=== PATIENT | female | born 1970 | race Two or more races ===

== ENCOUNTER 2016-11-13 08:02 | Inpatient (IN) | payer OTHER ==
[2016-11-13] MEDS ORDERED: ceFAZolin 1 GM/5 ML SYR ONE (13:34)
[2016-11-13] MEDS ORDERED: HEPARIN 1000 UNIT/1 ML MDV ONE (13:34)
[2016-11-13] MEDS ORDERED: BUPIVACAINE 0.5% 30 ML SDV ONE (13:34)
[2016-11-13] MEDS ORDERED: LIDOCAINE 1% 5 ML SDV ID PRN (14:59)
[2016-11-13] MEDS ORDERED: LR 1,000 ML IV ONE (14:59)
[2016-11-13] MEDS ORDERED: SUGAMMADEX SODIUM 200 MG/2 ML VIAL IVP ONE (15:23)
[2016-11-13] MEDS ORDERED: DEXAMETHASONE 4 MG/ML VIAL ONE (15:23)
[2016-11-13] MEDS ORDERED: ONDANSETRON 4 MG/2 ML VIAL ONE ×2 (15:23→18:33)
[2016-11-13] MEDS ORDERED: LIDOCAINE 2% 100 MG/5 ML SYR ONE (15:23)
[2016-11-13] MEDS ORDERED: ROCURONIUM 50 MG/5 ML VIAL ONE (15:23)
[2016-11-13] MEDS ORDERED: fentaNYL 250 MCG/5 ML INJ ONE (15:26)
[2016-11-13] MEDS ORDERED: PROPOFOL 200 MG/20 ML VIAL ONE (15:26)
[2016-11-13] MEDS ORDERED: cefOXitin SODIUM 1 GM in D5W 50 ML IV ONE (15:30)
[2016-11-13] MEDS ORDERED: MIDAZOLAM 2 MG/2 ML VIAL ONE (16:31)
[2016-11-13] MEDS ORDERED: fentaNYL 100 MCG/2 ML INJ ONE ×2 (17:47→18:01)
[2016-11-13] MEDS ORDERED: KETOROLAC 30 MG/1 ML SDV ONE (18:01)
[2016-11-13] MEDS ORDERED: LORazepam 2 MG/ML INJ ONE (18:46)
--- NOTE | 2016-11-13 18:56 | CPEKG ---
Heart Rate: 50 RR Interval: 1200 P-R Interval: 164 QRSD Interval: 90 QT Interval: 488 QTC Interval: 445 P Monroe: 8 QRS Monroe: 220 T Wave Monroe: 137 EKG Severity - ABNORMAL ECG - EKG Impression: SINUS RHYTHM EKG Impression: ANTEROLATERAL INFARCT, AGE INDETERMINATE Electronically Signed By: Carlos Byrd 15-Nov-2016 08:01:22
[2016-11-13] MEDS ORDERED: HYDROmorphONE/DILAUDID 1 MG/ML SYR ONE (20:27)
[2016-11-13] MEDS ORDERED: HYDROmorphONE/DILAUDID 1 MG/ML SYR IVP ONE (20:30)
[2016-11-13] MEDS ORDERED: HYDROmorphONE/DILAUDID 1 MG/ML SYR IVP PRN (21:00)
[2016-11-13] MEDS ORDERED: NALOXONE HCL 0.4 MG/ML INJ IVP PRN (21:01)
[2016-11-13] MEDS ORDERED: NS 1,000 ML IV SCH (21:15)
--- NOTE | 2016-11-13 21:56 | GHP ---
[f rep st] HISTORY AND PHYSICAL DATE OF ADMISSION: 11/13/2016 HISTORY OF PRESENT ILLNESS: The patient is a 46-year-old female with history of coronary artery dis ease, remote CABG, who is postop day 0 following an elective laparoscopic cholecystectomy with Dr. Bianca Palmer. In the PACU, she was found to have a fair amount of upper abdominal pain in her right upper side. I speak to the patient largely through her family as she is Slovak-speaking only. Sh e states this is unlike her previous cardiac pain. She is not short of breath. She is not diaphore tic. She felt well coming into the hospital this morning. She has no history of VTE. Her CABG was in 2005. She has also had subsequent stents prior. REVIEW OF SYSTEMS: Complete 10-point review of systems conducted and negative except as noted in th e HPI. PAST MEDICAL HISTORY: 1. Coronary artery disease with CABG and stents prior to that. 2. Hypertension. 3. Mild obesity. 4. Hyperlipidemia. 5. GERD. ALLERGIES: There are no known drug allergies. HOME MEDICATIONS: Aspirin, nitroglycerin, spironolactone, atorvastatin, carvedilol, lisinopril, ome prazole. SOCIAL HISTORY: She lives in [place] with family. Nonsmoker. Nondrinker. FAMILY HISTORY: She is the only family member with early coronary disease. PHYSICAL EXAMINATION: VITAL SIGNS: Afebrile, blood pressure 165/89, pulse 92, breathing 20 times a minute, 100% on 4 L. GENERAL: Uncomfortable, writhing in pain in bed. HEENT: Sclerae anicteric. Oropharynx is clear. Mucous membranes are moist. NECK: Supple without lymphadenopathy or JVD. LUNGS: Clear to auscultation bilaterally. HEART: S1, S2. Not tachycardic. ABDOMEN: Soft. Hector l sounds are present but hypoactive. There is no rebound or guarding. There is a Hernandez sign. She is clutching her right upper quadrant. EXTREMITIES: Lower extremities without edema. Calves are nontender. SKIN: Without rash. NEUROLOGIC: Nonfocal. LABORATORY DATA: Troponin is pending. EKG, interpreted by la, shows sinus at 50 with left axis dev iation. There is T-wave inversion in I, L, V6 with no prior for comparison. There is no ST elevati on. IMAGING DATA: Chest x-ray, interpreted by me, shows no acute cardiopulmonary disease. There is bernardo dence of prior CABG. There is no free air under the diaphragm. I discussed the case Dr. Arthur Palmer. ASSESSMENT AND PLAN: A 46-year-old female with postoperative pain with concerning for ischemic pain . 1. Coronary artery disease. Patient has an abnormal EKG with no prior; however, she states it is u nlike her prior pain and certainly her symptoms are readily and probably appropriately attributed to laparoscopic cholecystectomy. Cycle troponins. Follow her on telemetry. Her trim and burr operator is Dr. Israel Noriega. I have not spoken with him tonight, but they can compare her EKG to a prior. Again , troponins are pending. 2. Postoperative pain, fairly significant, greater than one might expect from a laparoscopic cholec ystectomy. Will put her on a Dilaudid SALES AND MARKETING EXECUTIVE, scheduled Tylenol, and p.r.n. antiemetics. 3. Hyperlipidemia. Will continue her statin tomorrow. 4. Prophylaxis. She is moderate to high risk, but she recently had surgery. Will start her on SCD s for now. She may be leaving the hospital. Certainly, if she remains in the hospital for prolonge d period of time, then pharmacologic prophylaxis would be indicated, probably starting by the 48-tenzin r parvin. 5. Disposition. Observation status. /[id number]/MODL
[2016-11-13] MEDS: ACETAMINOPHEN 500 MG TAB PO SCH (22:25)
[2016-11-13] MEDS: HYDROmorphONE/DILAUDID 6 MG/30 ML PCA IV PRN (22:25)
[2016-11-13] MEDS: ONDANSETRON 4 MG/2 ML VIAL IVP PRN (22:33)
[2016-11-14 01:04] LABS: % IMMATURE GRANULYOCYTES 0.6 % (0.0-1.1); ABSOLUTE IMMATURE GRANULOCYTES 0.05 10^3/uL (0.00-0.10); ADD DIFF? NO; ADD MORPH? NO; ADD SCAN? NO; ATYPICAL LYMPHOCYTE FLAG 0 (0-99); FRAGMENT RBC FLAG 0 (0-99); HEMATOCRIT 36.1 % (38.0-47.0); HEMOGLOBIN 11.7 g/dL (12.6-16.3); LEFT SHIFT FLG 10 (0-99); LIPEMIA HEMOLYSIS FLAG 80 (0-99); MEAN CELL HEMOGLOBIN 25.9 pg (27.9-34.1); MEAN CELL HEMOGLOBIN CONCENTR. 32.4 g/dL (32.4-36.7); MEAN CELL VOLUME 79.9 fL (81.5-99.8); MEAN PLATELET VOLUME 9.1 fL (8.7-11.7); PLATELET CLUMPS FLAG 0 (0-99); PLATELET COUNT 285 10^3/uL (150-400); RED BLOOD CELL COUNT 4.52 10^6/uL (4.18-5.33); RED CELL DISTRIBUTION WIDTH 14.2 % (11.5-15.2)
[2016-11-14 01:22] LABS: ALANINE AMINOTRANSFERASE 87 IU/L (9-52); ALBUMIN 4.3 g/dL (3.5-5.0); ALKALINE PHOSPHATASE 80 IU/L (38-126); ANION GAP 11 mEq/L (8-16); ASPARTATE AMINOTRANSFERASE 94 IU/L (14-46); BILIRUBIN,TOTAL 1.6 mg/dL (0.1-1.4); CALCIUM 9.3 mg/dL (8.5-10.4); CARBON DIOXIDE 23 mEq/l (22-31); CHLORIDE 105 mEq/L (97-110); CREATININE 0.8 mg/dL (0.6-1.0); GLOMERULAR FILTRATION RATE > 60; GLUCOSE 190 mg/dL (70-100); POTASSIUM 4.2 mEq/L (3.5-5.2); SODIUM 139 mEq/L (134-144); TOTAL PROTEIN 7.5 g/dL (6.3-8.2)
[2016-11-14 01:34] LABS: TROPONIN I < 0.012 ng/mL (0-0.034)
[2016-11-14] MEDS: ONDANSETRON 4 MG/2 ML VIAL IVP PRN ×3 (03:49→20:07)
--- NOTE | 2016-11-14 04:27 | GOP ---
[f rep st] OPERATIVE REPORT DATE OF OPERATION: 11/13/2016 SURGEON: Ori Palmer MD SANDWICH PEDDLER: EZEKIEL Espinoza. ANESTHESIOLOGIST: Dr. Mejia. PREOPERATIVE DIAGNOSIS: Symptomatic cholelithiasis. POSTOPERATIVE DIAGNOSIS: Symptomatic cholelithiasis. PROCEDURE PERFORMED: Laparoscopic cholecystectomy. FINDINGS: The patient was found to have a thickened gallbladder with multiple stones, small ducts. The gallbladder was completely covered with adhesions. DESCRIPTION OF PROCEDURE: The patient was taken to the operating room, where she received satisfact ory general endotracheal anesthesia by Dr. Mejia. She was placed in the supine position, prepped and draped in the usual sterile fashion. A periumbilical incision was made. A Veress needle inser vernell. Pneumoperitoneum was established. Trocar was introduced. Laparoscope introduced. Good visua lization was obtained. Three other trocars were placed in the upper abdomen under direct vision. T he gallbladder was exposed by dividing multiple omental adhesions to the liver edge and initially un covering the gallbladder. The gallbladder was dissected free for its entire length, then down to th e cystic duct. The cystic triangle was carefully exposed. The cystic duct was dissected free along with the cystic artery and hemoclipped and divided with care to avoid injury to the common duct. A good clear view had been established. The gallbladder was then dissected free in the bed and hepat ic fossa with electrocautery and placed in a specimen bag and extracted through the upper midline po rt site. The wound was irrigated. Hemostasis was thoroughly obtained. Trocars were removed under direct vision. Trocar sites were closed with 0 Vicryl for the fascia and 4-0 Monocryl subcuticular stitch for the skin. All layers were infiltrated with 0.5% Marcaine. Blood loss was negligible. N o complications. Taken to the recovery room in good condition. /[id number]/MODL
[2016-11-14] MEDS: ACETAMINOPHEN 500 MG TAB PO SCH ×3 (06:06→22:36)
--- NOTE | 2016-11-14 08:40 | SOAPPROG ---
SOAP Progress Note Assessment/Plan: Assessment/Plan: 46 Y F s/p lap ebony, admitted with pain, N/V. AXR unremarkable. Troponins fine. LFTs minimally elevated. WBCs normal. Currently on ENGINEER SYSTEM ADMINISTRATOR--needing reminders to push button per RN. Would like to attempt wean off IV pain meds and start PO with antiemetics PRN. If no improvement may need HIDA scan r/o bile leak. Dispo: pending pain control and resolution of N/V. S: +N/V. +pain. O: alert, mild distress ctab anteriorly rrr abd soft, rare BS, inc cdi 11/14/16 08:38 Objective: Vital Signs Temp Pulse Resp BP Pulse Ox 36.5 C 46 L 19 147/69 H 100 11/14/16 08:00 11/14/16 08:00 11/14/16 08:00 11/14/16 08:00 11/14/16 08:00 Laboratory Results 11/14/16 00:48 11/14/16 00:48 11/13/16 11/14/16 11/15/16 05:59 05:59 05:59 Intake Total 578 173 Output Total 750 Balance -172 173 ICD10 Worksheet Patient Problems: Problems Problem Status Onset S/P cholecystectomy Acute - ICD10 Problem Qualifiers (1) S/P cholecystectomy
[2016-11-14] MEDS: PROMETHAZINE HCL 25 MG TAB PO PRN ×3 (09:34→22:41)
[2016-11-14] MEDS: OXYCODONE/APAP 5/325 TAB PO PRN (09:38)
[2016-11-14 09:41] LABS: % IMMATURE GRANULYOCYTES 0.4 % (0.0-1.1); ABSOLUTE IMMATURE GRANULOCYTES 0.03 10^3/uL (0.00-0.10); ADD DIFF? NO; ADD MORPH? NO; ADD SCAN? NO; ATYPICAL LYMPHOCYTE FLAG 0 (0-99); FRAGMENT RBC FLAG 0 (0-99); HEMATOCRIT 32.7 % (38.0-47.0); HEMOGLOBIN 10.8 g/dL (12.6-16.3); LEFT SHIFT FLG 10 (0-99); LIPEMIA HEMOLYSIS FLAG 80 (0-99); MEAN CELL HEMOGLOBIN 26.5 pg (27.9-34.1); MEAN CELL VOLUME 80.1 fL (81.5-99.8); MEAN PLATELET VOLUME 9.2 fL (8.7-11.7); PLATELET CLUMPS FLAG 0 (0-99); PLATELET COUNT 262 10^3/uL (150-400); RED BLOOD CELL COUNT 4.08 10^6/uL (4.18-5.33); RED CELL DISTRIBUTION WIDTH 14.3 % (11.5-15.2)
[2016-11-14] MEDS: HYDROmorphONE/DILAUDID 6 MG/30 ML PCA IV PRN ×2 (09:52→20:06)
[2016-11-14 10:13] LABS: ANION GAP 9 mEq/L (8-16); CALCIUM 9.4 mg/dL (8.5-10.4); CARBON DIOXIDE 22 mEq/l (22-31); CHLORIDE 105 mEq/L (97-110); CREATININE 0.7 mg/dL (0.6-1.0); GLOMERULAR FILTRATION RATE > 60; GLUCOSE 137 mg/dL (70-100); POTASSIUM 4.5 mEq/L (3.5-5.2); SODIUM 136 mEq/L (134-144)
[2016-11-14 10:20] LABS: TROPONIN I < 0.012 ng/mL (0-0.034)
[2016-11-14] MEDS ORDERED: PROMETHAZINE HCL 25 MG/ML INJ IV PRN (10:46)
[2016-11-14] MEDS ORDERED: PROMETHAZINE HCL 25 MG SUPPR PR PRN (11:32)
[2016-11-14] MEDS: CARVEDILOL 3.125 MG TAB PO SCH ×3 (13:14→22:31)
[2016-11-14] MEDS: PANTOPRAZOLE SODIUM 40 MG TAB PO SCH (13:15)
[2016-11-14] MEDS: ONDANSETRON DISINTEGRATING 4 MG TAB PO PRN (16:38)
--- NOTE | 2016-11-14 16:39 | HOSPPROG ---
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 tele: pvc's (interp by nm) Objective: Vital Signs Temp Pulse Resp BP Pulse Ox 36.9 C 64 14 87/43 L 92 11/14/16 16:00 11/14/16 16:00 11/14/16 16:00 11/14/16 16:00 11/14/16 16:00 Laboratory Results 11/14/16 09:02 11/14/16 09:02 11/13/16 11/14/16 11/15/16 05:59 05:59 05:59 Intake Total 578 173 Output Total 750 Balance -172 173 - Physical Exam Constitutional: no apparent distress, appears nourished Eyes: PERRL, anicteric sclera Ears, Nose, Mouth, Throat: moist mucous membranes, hearing normal Cardiovascular: regular rate and rhythym, no murmur, rub, or gallop Respiratory: no respiratory distress, no rales or rhonchi Gastrointestinal: tobias's sign, other (diffusely tender, no rebound or guard) Genitourinary: no bladder fullness, No davalos in urethra Skin: warm, normal color Musculoskeletal: full muscle strength, no muscle tenderness Neurologic: AAOx3, sensation intact bilaterally Psychiatric: interacting appropriately, not anxious Lymph, Heme, Immunologic: no cervical LAD ICD10 Worksheet Patient Problems: Problems Problem Status Onset S/P cholecystectomy Acute
[2016-11-14] MEDS ORDERED: NS 500 ML IV ONE (17:00)
[2016-11-14] MEDS: LISINOPRIL 40 MG TAB PO SCH ×2 (20:07→22:31)
[2016-11-14] MEDS: ATORVASTATIN CALCIUM 40 MG TAB PO SCH ×2 (20:07→22:31)
[2016-11-14] MEDS: NS 1,000 ML IV SCH (22:44)
[2016-11-15] MEDS: ACETAMINOPHEN 500 MG TAB PO SCH ×4 (05:09→20:01)
[2016-11-15] MEDS: HYDROmorphONE/DILAUDID 6 MG/30 ML PCA IV PRN ×2 (06:30→17:19)
[2016-11-15] MEDS: PANTOPRAZOLE SODIUM 40 MG TAB PO SCH (08:57)
[2016-11-15] MEDS: CARVEDILOL 3.125 MG TAB PO SCH ×2 (09:24→18:11)
[2016-11-15] MEDS: oxyCODONE IR 5 MG TAB PO PRN ×3 (09:42→19:50)
[2016-11-15] MEDS: ERTAPENEM 1 GM in NS 100 ML IV SCH (09:43)
[2016-11-15 10:44] LABS: % IMMATURE GRANULYOCYTES 0.1 % (0.0-1.1); ABSOLUTE IMMATURE GRANULOCYTES 0.01 10^3/uL (0.00-0.10); ADD DIFF? NO; ADD MORPH? NO; ADD SCAN? NO; ATYPICAL LYMPHOCYTE FLAG 10 (0-99); FRAGMENT RBC FLAG 0 (0-99); HEMATOCRIT 31.2 % (38.0-47.0); LEFT SHIFT FLG 0 (0-99); LIPEMIA HEMOLYSIS FLAG 80 (0-99); MEAN CELL HEMOGLOBIN 26.5 pg (27.9-34.1); MEAN CELL HEMOGLOBIN CONCENTR. 32.1 g/dL (32.4-36.7); MEAN CELL VOLUME 82.5 fL (81.5-99.8); MEAN PLATELET VOLUME 9.3 fL (8.7-11.7); PLATELET CLUMPS FLAG 20 (0-99); PLATELET COUNT 233 10^3/uL (150-400); RED BLOOD CELL COUNT 3.78 10^6/uL (4.18-5.33); RED CELL DISTRIBUTION WIDTH 14.7 % (11.5-15.2)
[2016-11-15 11:07] LABS: ALANINE AMINOTRANSFERASE 171 IU/L (9-52); ALBUMIN 3.5 g/dL (3.5-5.0); ALKALINE PHOSPHATASE 68 IU/L (38-126); AMYLASE 68 IU/L (30-110); ASPARTATE AMINOTRANSFERASE 128 IU/L (14-46); BILIRUBIN,TOTAL 2.3 mg/dL (0.1-1.4); BILIRUBIN-CONJUGATED 0.5 mg/dL (0.0-0.5); BILIRUBIN-UNCONJUGATED 1.8 mg/dL (0.0-1.1); TOTAL PROTEIN 6.2 g/dL (6.3-8.2)
--- NOTE | 2016-11-15 15:54 | HOSPPROG ---
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 low grade temp today Objective: Vital Signs Temp Pulse Resp BP Pulse Ox 37.0 C 64 16 99/79 L 93 11/15/16 14:00 11/15/16 14:00 11/15/16 14:00 11/15/16 14:00 11/15/16 14:00 Laboratory Results 11/15/16 10:26 11/14/16 09:02 11/14/16 11/15/16 11/16/16 05:59 05:59 05:59 Intake Total 578 1123 2300 Output Total 750 400 900 Balance -143 739 0794 - Physical Exam Constitutional: no apparent distress, appears nourished, other (looks more comfortable) Eyes: PERRL, anicteric sclera Ears, Nose, Mouth, Throat: moist mucous membranes, hearing normal Cardiovascular: regular rate and rhythym, no murmur, rub, or gallop Respiratory: no respiratory distress, no rales or rhonchi Gastrointestinal: normoactive bowel sounds, soft, non-tender abdomen Genitourinary: No davalos in urethra Skin: warm, normal color Musculoskeletal: full muscle strength, no muscle tenderness Neurologic: AAOx3, sensation intact bilaterally ICD10 Worksheet Patient Problems: Problems Problem Status Onset S/P cholecystectomy Acute
[2016-11-15] MEDS: NS 1,000 ML IV SCH (16:33)
[2016-11-15] MEDS: ATORVASTATIN CALCIUM 40 MG TAB PO SCH (18:08)
[2016-11-15] MEDS: LISINOPRIL 40 MG TAB PO SCH (18:11)
[2016-11-15] MEDS ORDERED: ALBUMIN 5% 500 ML IV ONE (18:30)
[2016-11-15] MEDS: ONDANSETRON DISINTEGRATING 4 MG TAB PO PRN (19:50)
[2016-11-15] MEDS ORDERED: NITROGLYCERIN 0.4 MG BTL SL PRN (20:22)
--- NOTE | 2016-11-15 20:26 | SOAPPROG ---
SOAP Progress Note Assessment/Plan: Assessment: STILL COMPLAINS OF SOME EPIGASTRIC DISCOMFORT / VERY LOW-GRADE TEMP/ LFTS ARE SLIGHTLY ELEVATED/ ABDOMEN IS SOFT NONTENDER WOUNDS ARE HEALING WELL Plan: PROBABLY HOME IN THE A.M. / CLEAR LIQUIDS 11/15/16 20:21 Objective: Vital Signs Temp Pulse Resp BP Pulse Ox 37.2 C 62 14 89/44 L 94 11/15/16 18:00 11/15/16 18:11 11/15/16 18:00 11/15/16 18:11 11/15/16 18:00 Laboratory Results 11/15/16 10:26 11/14/16 09:02 11/14/16 11/15/16 11/16/16 05:59 05:59 05:59 Intake Total 578 1123 8546 Output Total 831 168 3850 Balance -598 766 9392 ICD10 Worksheet Patient Problems: Problems Problem Status Onset S/P cholecystectomy Acute
[2016-11-16] MEDS: NS 1,000 ML IV SCH ×2 (01:52→09:25)
[2016-11-16] MEDS: oxyCODONE IR 5 MG TAB PO PRN ×4 (01:52→23:14)
[2016-11-16] MEDS: ACETAMINOPHEN 500 MG TAB PO SCH ×3 (05:34→20:49)
[2016-11-16 05:51] LABS: % IMMATURE GRANULYOCYTES 0.4 % (0.0-1.1); ABSOLUTE IMMATURE GRANULOCYTES 0.02 10^3/uL (0.00-0.10); ADD DIFF? NO; ADD MORPH? NO; ADD SCAN? NO; ATYPICAL LYMPHOCYTE FLAG 0 (0-99); FRAGMENT RBC FLAG 0 (0-99); HEMATOCRIT 28.9 % (38.0-47.0); LEFT SHIFT FLG 0 (0-99); LIPEMIA HEMOLYSIS FLAG 80 (0-99); MEAN CELL HEMOGLOBIN 26.3 pg (27.9-34.1); MEAN CELL HEMOGLOBIN CONCENTR. 31.1 g/dL (32.4-36.7); MEAN CELL VOLUME 84.5 fL (81.5-99.8); MEAN PLATELET VOLUME 9.6 fL (8.7-11.7); PLATELET CLUMPS FLAG 0 (0-99); PLATELET COUNT 204 10^3/uL (150-400); RED BLOOD CELL COUNT 3.42 10^6/uL (4.18-5.33); RED CELL DISTRIBUTION WIDTH 14.6 % (11.5-15.2)
[2016-11-16 06:05] LABS: ALANINE AMINOTRANSFERASE 142 IU/L (9-52); ALBUMIN 3.4 g/dL (3.5-5.0); ALKALINE PHOSPHATASE 78 IU/L (38-126); AMYLASE 48 IU/L (30-110); ASPARTATE AMINOTRANSFERASE 101 IU/L (14-46); BILIRUBIN,TOTAL 3.4 mg/dL (0.1-1.4); BILIRUBIN-CONJUGATED 1.1 mg/dL (0.0-0.5); BILIRUBIN-UNCONJUGATED 2.3 mg/dL (0.0-1.1); TOTAL PROTEIN 5.9 g/dL (6.3-8.2)
[2016-11-16] MEDS: CARVEDILOL 3.125 MG TAB PO SCH ×2 (07:40→18:20)
[2016-11-16] MEDS: SPIRONOLACTONE 25 MG TAB PO SCH (09:10)
[2016-11-16] MEDS: ERTAPENEM 1 GM in NS 100 ML IV SCH (09:13)
[2016-11-16] MEDS: PANTOPRAZOLE SODIUM 40 MG TAB PO SCH (09:15)
[2016-11-16] MEDS: HYDROmorphONE/DILAUDID 6 MG/30 ML PCA IV PRN (09:27)
[2016-11-16] MEDS: ONDANSETRON DISINTEGRATING 4 MG TAB PO PRN (09:38)
[2016-11-16] MEDS: ENOXAPARIN 40 MG/0.4 ML SYR SC SCH (11:46)
[2016-11-16] MEDS: ASPIRIN 325 MG TAB PO SCH (11:46)
--- NOTE | 2016-11-16 15:39 | GCON ---
[f rep st] CONSULTATION GASTROENTEROLOGY CONSULTATION DATE OF CONSULTATION: 11/16/2016 REASON FOR CONSULTATION: Right upper quadrant abdominal pain post laparoscopic cholecystectomy. HISTORY OF PRESENT ILLNESS: The patient is a 46-year-old female, who was admitted to the hospital on 11/13/16 with symptomatic cholelithiasis. She underwent a laparoscopic cholecystectomy the day of admission at which time a thickened gallbladder with multiple stones and small ducts was identified. The gallbladder was completely covered with adhesions, and the gallbladder needed to be dissected free for its entire length. The patient has had a prolonged postoperative course with the complaints of abdominal discomfort in the right upper quadrant. HIDA scan performed on 11/14/16 revealed delayed small amount of activity in the region of the gallbladder fossa at 51 minutes. The patient' s liver enzymes have fallen over the last 24 hours with her AST 101 and ALT 142 today with a normal alkaline phosphatase of 78. Though her bilirubin has risen from admission of 1.6 to 3.4 today, her conjugated bilirubin is only 1.1 and her unconjugated is 2.3. Her lipase has remained normal at 48. On interviewing the patient with a full time staff interpreter today, she states that she does have a dull pain in the right upper quadrant, though at the present time it is not severe, more mild to moderate in intensity. It is not colicky. CURRENT MEDICATIONS: Prior to admission included aspirin, nitroglycerin, spironolactone, atorvastatin, carvedilol, lisinopril, and omeprazole. ALLERGIES: She has no known drug allergies. PAST MEDICAL HISTORY: Significant for atherosclerotic cardiovascular disease with status post CABG and stenting in the past, essential hypertension, hyperlipidemia, and GERD. PAST SURGICAL HISTORY: Significant for CABG and recent laparoscopic cholecystectomy. FAMILY HISTORY: Positive for coronary artery disease in the family. Negative for gallbladder disease. SOCIAL HISTORY: She lives with her family in [place]. She does not speak Ugandan. She does not smoke tobacco or drink alcohol. REVIEW OF SYSTEMS: Negative for comprehensive review of systems. PHYSICAL EXAMINATION: VITAL SIGNS: On my examination today, temperature is 36.8, pulse 51, regular, blood pressure 114/54, respiratory rate is 16, oxygen saturation 99% on 2 L per nasal cannula. GENERAL: A moderately obese female, lying in bed, looking mildly uncomfortable. INTEGUMENT: Clear. HEENT: Head atraumatic, normocephalic. Pupils equal, round, reactive to light. EOMs intact. Sclerae nonicteric. Nares patent. Mucous membranes moist. Dentition good. NECK: Supple. Trachea midline. LYMPHATICS: No cervical or axillary adenopathy. PULMONARY: Lungs clear to percussion and auscultation. CARDIOVASCULAR: Regular rhythm and rate. Normal S1, S2 without murmur. Peripheral pulses strong bilaterally. No pedal edema. GASTROINTESTINAL: Abdomen mildly distended. Clean trocar incision sites noted in right upper quadrant. Mild to moderate tenderness in right upper quadrant without palpable mass or rebound. No fluid wave noted. EXTREMITIES: Without deformities. NEURO: Patient is alert and oriented x3. No focal neurologic deficits. LABORATORY DATA: Electrolytes normal. Glucose 137. Total bilirubin 3.4, conjugated 1.1, unconjugated 2.3. AST 101, ALT 142, ALP 78. Lipase 48. White count 5.69, hemoglobin 9.0, hematocrit 28.9, platelets 204,000. IMAGING DATA: HIDA scan as noted above. IMPRESSION: 1. Right upper quadrant abdominal pain post laparoscopic cholecystectomy with mild leakage of bile in the gallbladder fossa likely secondary to raw liver margin, doubt significant bile duct leak. 2. Elevated bilirubin, predominantly unconjugated, consistent with Gilbert's. 3. Atherosclerotic cardiovascular disease, stable. 4. Essential hypertension, well controlled. RECOMMENDATIONS: 1. Diet as tolerated. 2. Patient okay to discharge to home today with close followup per general surgeon. /[id number]/MODL MTDD
--- NOTE | 2016-11-16 15:43 | HOSPPROG ---
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 add oxycodone proph: scd's dispo: inpt pain: scheduled tylenol and regulatory lead home today > 30 mintes see dc summary Subjective: ready for dc Objective: Vital Signs Temp Pulse Resp BP Pulse Ox 36.8 C 51 L 16 114/54 L 99 11/16/16 12:00 11/16/16 12:00 11/16/16 12:00 11/16/16 12:00 11/16/16 12:00 Laboratory Results 11/16/16 05:09 11/14/16 09:02 11/15/16 11/16/16 11/17/16 05:59 05:59 05:59 Intake Total 1123 3794 1169 Output Total 400 2300 50 Balance 723 1494 1119 - Physical Exam Constitutional: no apparent distress, appears nourished Eyes: PERRL, anicteric sclera Ears, Nose, Mouth, Throat: moist mucous membranes, hearing normal Cardiovascular: regular rate and rhythym, no murmur, rub, or gallop Respiratory: no respiratory distress, no rales or rhonchi Gastrointestinal: normoactive bowel sounds, soft, non-tender abdomen, No tobias' s sign Genitourinary: no bladder fullness, No davalos in urethra Skin: warm Musculoskeletal: full muscle strength Neurologic: AAOx3, sensation intact bilaterally Psychiatric: interacting appropriately, not anxious ICD10 Worksheet Patient Problems: Problems Problem Status Onset S/P cholecystectomy Acute
--- NOTE | 2016-11-16 16:15 | GDS ---
[f rep st] DISCHARGE SUMMARY DISCHARGE DIAGNOSES: 1. Right upper quadrant pain, status post cholecystectomy. 2. Coronary artery disease, status post CABG. 3. Small bile leak. HOSPITAL COURSE: Please see admission history and physical by Dr. Rayray Newell. The patient pres ented with right upper quadrant pain. This was unlike her anginal equivalent. She had an abnormal EKG but negative troponins and no events on telemetry and felt not to be consistent with angina larg laine because it was most consistent with postoperative pain. She had a HIDA scan suggesting a small bile leak. She was seen by GI, who felt this was unremarkable. She did have low-grade temps while here. She was started on ertapenem. She is now discharged on Augmentin to complete a 7-day course of antibiotics, as well as some pain medicines and Zofran. The patient was up and ambulating and do ing well and tolerating a clear liquid diet at the time of discharge. /[id number]/MODL
[2016-11-16] MEDS: LISINOPRIL 40 MG TAB PO SCH (18:21)
[2016-11-16] MEDS: ATORVASTATIN CALCIUM 40 MG TAB PO SCH (18:23)
[2016-11-16] MEDS: OXYCODONE/APAP 5/325 TAB PO PRN (20:10)
--- NOTE | 2016-11-16 21:35 | SOAPPROG ---
SOAP Progress Note Assessment/Plan: Assessment: STILL COMPLAINS OF SOME EPIGASTRIC DISCOMFORT / VERY LOW-GRADE TEMP/ LFTS ARE SLIGHTLY ELEVATED/ ABDOMEN IS SOFT NONTENDER WOUNDS ARE HEALING WELL Plan: PROBABLY HOME IN THE A.M. / CLEAR LIQUIDS 11/15/16 20:21 11/16/16 21:34 Afebrile in eating well and ambulating well all day but now complains of epigastric pain in the epigastric incision. Remainder the abdomen is soft but she does have decreased bowel sounds after given oxycodone. Will observe 1 more night and follow-up LFTs in the morning Objective: Vital Signs Temp Pulse Resp BP Pulse Ox 36.9 C 52 L 16 116/46 L 92 11/16/16 19:53 11/16/16 19:53 11/16/16 19:53 11/16/16 19:53 11/16/16 19:53 Laboratory Results 11/16/16 05:09 11/14/16 09:02 11/15/16 11/16/16 11/17/16 05:59 05:59 05:59 Intake Total 1123 3794 1169 Output Total 400 2300 1000 Balance 723 1494 169 ICD10 Worksheet Patient Problems: Problems Problem Status Onset S/P cholecystectomy Acute
[2016-11-17 04:29] VITALS: RESP 16
[2016-11-17] MEDS: OXYCODONE/APAP 5/325 TAB PO PRN ×2 (04:57→10:13)
[2016-11-17] MEDS: ACETAMINOPHEN 500 MG TAB PO SCH (05:01)
[2016-11-17 05:38] LABS: HEMATOCRIT 31.7 % (38.0-47.0); HEMOGLOBIN 10.1 g/dL (12.6-16.3); MEAN CELL HEMOGLOBIN 26.2 pg (27.9-34.1); MEAN CELL HEMOGLOBIN CONCENTR. 31.9 g/dL (32.4-36.7); MEAN CELL VOLUME 82.1 fL (81.5-99.8); RED BLOOD CELL COUNT 3.86 10^6/uL (4.18-5.33); RED CELL DISTRIBUTION WIDTH 14.3 % (11.5-15.2)
[2016-11-17 05:51] LABS: ALBUMIN 3.3 g/dL (3.5-5.0); BILIRUBIN,TOTAL 2.7 mg/dL (0.1-1.4); BILIRUBIN-CONJUGATED 0.9 mg/dL (0.0-0.5); BILIRUBIN-UNCONJUGATED 1.8 mg/dL (0.0-1.1)
[2016-11-17] MEDS: ASPIRIN 325 MG TAB PO SCH (09:08)
[2016-11-17] MEDS: SPIRONOLACTONE 25 MG TAB PO SCH (09:08)
[2016-11-17] MEDS: CARVEDILOL 3.125 MG TAB PO SCH (09:08)
[2016-11-17] MEDS: ENOXAPARIN 40 MG/0.4 ML SYR SC SCH (09:08)
[2016-11-17] MEDS: PANTOPRAZOLE SODIUM 40 MG TAB PO SCH (09:08)
--- NOTE | 2016-11-17 09:47 | HOSPPROG ---
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 afebrile. not tachycardic Objective: Vital Signs Temp Pulse Resp BP Pulse Ox 37.0 C 55 L 16 117/65 91 L 11/17/16 04:00 11/17/16 04:00 11/17/16 04:00 11/17/16 04:00 11/17/16 04:00 Laboratory Results 11/17/16 05:17 11/14/16 09:02 11/16/16 11/17/16 11/18/16 05:59 05:59 05:59 Intake Total 3794 1419 Output Total 2300 1000 Balance 1494 419 - Physical Exam Constitutional: no apparent distress, appears nourished Eyes: PERRL, anicteric sclera Ears, Nose, Mouth, Throat: moist mucous membranes, hearing normal Cardiovascular: regular rate and rhythym, no murmur, rub, or gallop Respiratory: no respiratory distress, no rales or rhonchi Gastrointestinal: normoactive bowel sounds, soft, non-tender abdomen Genitourinary: no bladder fullness, No davalos in urethra Skin: warm Musculoskeletal: full muscle strength, no muscle tenderness Neurologic: AAOx3 Psychiatric: interacting appropriately, not anxious Lymph, Heme, Immunologic: no cervical LAD ICD10 Worksheet Patient Problems: Problems Problem Status Onset S/P cholecystectomy Acute
[2016-11-17 10:11] VITALS: BP 109/80; PULSE 58; TEMP 97.9; O2SAT 90
[2016-11-17] MEDS: ERTAPENEM 1 GM in NS 100 ML IV SCH (10:21)
--- NOTE | 2016-11-17 10:21 | GDS ---
[f rep st] DISCHARGE SUMMARY Please see yesterday's discharge summary dated 11/16/2016. The patient did not leave because of abd ominal pain. She was neither tachycardiac nor febrile overnight. She has a moderate right upper qu adrant tenderness but normal bowel sounds and is eating. She is discharged home today. For details of this hospitalization, please see yesterday's discharge summary. Greater than 30 minutes spent in preparation of this dictation. /[id number]/MODL
== END 2016-11-17 10:24 | disposition home or self-care (01) | DRG 940 ==
LOC: F3E 13:30 → FSGY 13:30 → EDSTATUS 15:00 → F3E 19:58 → OBSVTOIN 11-14 16:15
PROVIDERS: ADMIT Surgery; ATTEND Surgery
PROC: 0FT44ZZ Resection of Gallbladder, Percutaneous Endoscopic Approach (ICD-10-PCS; principal; 2016-11-13 15:00)
DX: G89.18 Other acute postprocedural pain (principal); K80.10 Calculus of gallbladder with chronic cholecystitis without obstruction; K82.8 Other specified diseases of gallbladder; R94.31 Abnormal electrocardiogram [ECG] [EKG]; I25.10 Atherosclerotic heart disease of native coronary artery without angina pectoris; I10 Essential (primary) hypertension; E78.5 Hyperlipidemia, unspecified; K21.9 Gastro-esophageal reflux disease without esophagitis; Z95.5 Presence of coronary angioplasty implant and graft; Z95.1 Presence of aortocoronary bypass graft
CPT/HCPCS: A9537; J0697; J1100; J1170; J1335; J1650; J1885; J2001; J2060; J2250; J2405; J2704; J3010; P9041